=== PATIENT | female | born 1935 | race Caucasian/White ===

== ENCOUNTER 2017-02-22 17:30 | Emergency (ER) | payer OTHER, MEDICARE ==
--- NOTE | 2017-02-22 19:28 | PDOC ---
History of Present Illness - General History Source: Patient Exam Limitations: No Limitations - History of Present Illness Initial Comments: 02/22/17 22:04 81 y/o F with a PMHx of COPD, gastric ulcers presents to the ED s/p fall today. Patient was in her garden pulling weeds when she lost her balance and fell onto a wooden border. Patient reports associated left sided rib pain, left shoulder pain, back pain, neck pain, left hip pain and bilateral knee pain. She also has a skin abrasion on her left knee. Per family member, the patient coughed a lot after she fell and she now experiences pain on inspiration. She denies LOC, hitting her head, dizziness. She denies SOB. <Elida Gutierrez - Last Filed: 02/22/17 22:16> <Leatha Pardo - Last Filed: 02/24/17 22:14> - General Chief Complaint: Injury Stated Complaint: FELL, LEFT RIB PAIN Time Seen by Provider: 02/22/17 19:19 Past History <Elida Gutierrez - Last Filed: 02/22/17 22:16> <Leatha Pardo - Last Filed: 02/24/17 22:14> - Past Medical History Allergies/Adverse Reactions: Allergies Allergy/AdvReac Type Severity Reaction Status Date / Time No Known Allergies Allergy Unverified 06/09/12 11:48 Home Medications: Ambulatory Orders Albuterol Sulfate [Albuterol Sulfate Hfa] 8.5 gm IH ASDIR PRN 07/10/12 Bifidobacterium Infantis [Align] 4 mg PO DAILY capsule 07/10/12 Calcium 600 mg PO BID 07/10/12 Polyethylene Glycol 3350 [Miralax] 17 gm PO HS PRN 07/10/12 Acetaminophen with Codeine [Tylenol with Codeine #3 Tablet] 1 each PO TID PRN # 12 tablet MDD 3 tabs 02/22/17 Review of Systems - Review of Systems Respiratory: No: Shortness of Breath Musculoskeletal: Yes: Back Pain, Neck Pain, Other (left sided rib pain, left hip pain, left shoulder pain, bilateral knee pain) Integumentary: Yes: Other (left knee abrasion) Neurological: No: Headache, Dizziness, Other (LOC) All Other Systems: Reviewed and Negative <Elida Gutierrez - Last Filed: 02/22/17 22:16> *Physical Exam - Physical Exam Comments: 02/22/17 22:07 General: Patient is alert and in no acute distress. Speech is clear and appropriate. Head: Atraumatic and nontender. HEENT: Pupils are equal round and reactive to light, extraocular movements are intact. The tympanic membranes are clear, no hemotympanum. No facial deformity/tenderness, no septal hematoma. The oropharynx is clear. Neck: The trachea is midline, there is no stridor. There is no midline cervical spine tenderness, full range of motion of neck. Chest: Tenderness of the left ribs 4-8 at anterior axillary line. No crepitus no step offs of the chest wall. No ecchymosis or abrasions. Heart: S1-S2, regular rate and rhythm. No murmurs. Lungs: Clear to auscultation bilaterally. Symmetric chest rise. Abdomen: Soft/nontender/nondistended. Bowel sounds are normal. There is no abdominal or flank ecchymosis. Back/Pelvis: There is no midline spinal tenderness or step-off. Pelvis is stable and nontender. Extremities: Tenderness posteriorly of the left shoulder with reproduction of the pain with abduction of her upper arm. No deformity, edema or ecchymosis of the left shoulder. Tenderness of the knee anteriorly with 2 x 1 cm abrasions of the anterior surface of the knee. No deformity or ecchymosis. Minimal edema of the anterior aspect. No tenderness of the anterior portion of either hip joint. Neuro: Alert and oriented x3. Cranial nerves II through XII are intact. 5 out of 5 motor strength x4 extremities. [id number] is intact. No pronator drift. Gait is stable. Skin: No abrasions/hematomas/lacerations. Psych: Affect is appropriate. <Elida Gutierrez A - Last Filed: 02/22/17 22:16> Progress Note - Progress Note Progress Note: Documentation has been prepared under my direction and personally reviewed by me in its entirety. I attest that this documented accurately reflects all work, treatment, procedures and medical decision making performed by me. <Leatha Pardo J - Last Filed: 02/24/17 22:14> Medical Decision Making - Medical Decision Making As noted above, this 81-year-old woman presents with a history of of mechanical fall when she lost her balance while weeding in her garden. Patient fell against a wooden partition in the ground striking left upper anterior chest. There was no loss of consciousness/neck injury. Patient has significant amount of pain with deep breathing and palpation of her chest wall, left side; she also has left shoulder and left knee pain. X-rays of the left ribs/left shoulder/left knee all negative for fracture dislocation Patient discharged in the company of her family. The patient states that she uses Tylenol with codeine No. 3 as needed for severe pain : Otherwise she uses plain Tylenol. Prescription for Tylenol with codeine No. 3(#12) transmitted to patient's pharmacy. Patient will follow-up with her PMD, Dr. Hadley within the next 3-5 days. If she has severe pain, shortness of breath, cough, fever, she will return to the emergency room <Leatha Pardo - Last Filed: 02/24/17 22:14> *DC/Admit/Observation/Transfer - Attestations Scribe Attestion: 02/22/17 22:07 Documentation prepared by Elida Gutierrez, acting as emergency medical service coordinator for Leatha Pardo MD. <Elida Gutierrez - Last Filed: 02/22/17 22:16> <Leatha Pardo - Last Filed: 02/24/17 22:14> Diagnosis at time of Disposition: Contusion of rib on left side Qualifiers: Encounter type: initial encounter Qualified Code(s): S20.212A - Contusion of left front wall of thorax, initial encounter Contusion of left shoulder Qualifiers: Encounter type: initial encounter Qualified Code(s): S40.012A - Contusion of left shoulder, initial encounter Contusion of left knee Qualifiers: Encounter type: initial encounter Qualified Code(s): S80.02XA - Contusion of left knee, initial encounter - Discharge Dispostion Disposition: HOME Condition at time of disposition: Stable - Prescriptions Prescriptions: Acetaminophen with Codeine [Tylenol with Codeine #3 Tablet] 1 each PO TID PRN # 12 tablet MDD 3 tabs PRN Reason: Severe Pain - Referrals Referrals: Kevon Hadley MD [Primary Care Provider] - 1 week - Patient Instructions Printed Discharge Instructions: DI for Rib Contusion Additional Instructions: Avoid strenuous activity for the next several days Local warmth to areas of pain Tylenol as needed for mild to moderate pain Tylenol with codeine No. 3 as needed for severe pain Continue MiraLAX Follow-up with Dr. Hadley within the next 5-7 days Return to ER if you have fever/shortness of breath/cough
[2017-02-22 22:41] VITALS: BP 139/76; PULSE 82; TEMP 98.5; BMI 28.9
[2017-02-22] MEDS ORDERED: ACETAMINOPHEN WITH CODEINE 300MG/30MG TABLET PO ONE (22:41)
[2017-02-22] MEDS ORDERED: ACETAMINOPHEN WITH CODEINE 300MG/30MG TABLET ONE (22:47)
== END 2017-02-22 22:53 | disposition home or self-care (01) ==
LOC: FER 17:30
DX: S20.212A Contusion of left front wall of thorax, initial encounter (principal); S40.012A Contusion of left shoulder, initial encounter; S80.02XA Contusion of left knee, initial encounter; W18.39XA Other fall on same level, initial encounter; Y93.H2 Activity, gardening and landscaping; Y92.096 Garden or yard of other non-institutional residence as the place of occurrence of the external cause; J44.9 Chronic obstructive pulmonary disease, unspecified
CPT/HCPCS: 71101-TC; 73030-TC-LT; 73560-TC-LT; 99281-25

== ENCOUNTER 2020-05-17 16:18 | Emergency (ER) | payer OTHER, MEDICARE | END 2020-05-17 16:29 | disposition home or self-care (01) | LOC: JVIRT 16:18 | DX: Z03.818 Encounter for observation for suspected exposure to other biological agents ruled out (principal) | CPT/HCPCS: C9803; Q3014-GT; U0003 ==

== ENCOUNTER 2020-05-23 17:37 | Emergency (ER) | payer OTHER, MEDICARE | END 2020-05-23 17:48 | disposition home or self-care (01) | LOC: JVIRT 17:37 | DX: Z03.818 Encounter for observation for suspected exposure to other biological agents ruled out (principal) | CPT/HCPCS: C9803; Q3014-GT; U0003 ==

== ENCOUNTER 2020-05-29 10:00 | Emergency (ER) | payer OTHER, MEDICARE | END 2020-05-29 11:07 | disposition home or self-care (01) | LOC: JVIRT 10:00 | DX: Z11.59 Encounter for screening for other viral diseases (principal) | CPT/HCPCS: C9803; Q3014-GT; U0003 ==

== ENCOUNTER 2020-10-31 15:31 | Emergency (ER) | payer OTHER, MEDICARE ==
[2020-11-01 12:07] LABS: SARS-CoV-2 NAA Not Detected (Not Detected)
== END 2020-10-31 16:30 | disposition home or self-care (01) ==
LOC: JVIRT 15:31
DX: Z20.822 Contact with and (suspected) exposure to COVID-19 (principal)
CPT/HCPCS: C9803; G2251-GT; U0003; U0005

== ENCOUNTER 2021-02-04 22:20 | Emergency (ER) | payer OTHER, MEDICARE ==
[2021-02-04] MEDS ORDERED: ACETAMINOPHEN 500 MG TABLET (FP) PO ONE (22:29)
[2021-02-04 22:31] VITALS: BP 145/80; PULSE 80; TEMP 98.1; BMI 29.3
[2021-02-04] MEDS ORDERED: ACETAMINOPHEN 500 MG TABLET (FP) ONE (22:34)
== END 2021-02-05 00:28 | disposition home or self-care (01) ==
LOC: FER 22:20
DX: S22.32XA Fracture of one rib, left side, initial encounter for closed fracture (principal); S63.501A Unspecified sprain of right wrist, initial encounter; M79.645 Pain in left finger(s); W10.8XXA Fall (on) (from) other stairs and steps, initial encounter; Y93.01 Activity, walking, marching and hiking
CPT/HCPCS: 70450-TC; 71046-TC-FY; 71101-TC-LT-FY; 73110-TC-RT-FY; 73130-TC-RT-FY; 73140-TC-LT-FY; 99285-25

== ENCOUNTER 2021-11-30 04:22 | Day surgery (SDC) | payer OTHER, MEDICARE ==
[2021-11-24 16:58] VITALS: BMI 29.9
[2021-11-30] MEDS ORDERED: FENTANYL CITRATE/PF 50 MCG/ML VIAL ONE ×2 (14:16→14:37)
[2021-11-30] MEDS ORDERED: MIDAZOLAM HCL 2 MG/2 ML SINGLE DOSE VIAL ONE (14:16)
[2021-11-30] MEDS ORDERED: PROPOFOL 20 ML ONE (14:16)
[2021-11-30] MEDS ORDERED: ceFAZolin SODIUM 1 GM VIAL IVPB ONE (14:30)
[2021-11-30] MEDS ORDERED: PROMETHAZINE HCL 25 MG/1 ML VIAL IVPUSH PRN (14:51)
[2021-11-30] MEDS ORDERED: ONDANSETRON 4 MG/2 ML VIAL IVPUSH PRN (14:51)
[2021-11-30] MEDS ORDERED: oxyCODONE HCL 5 MG TABLET PO PRN (14:51)
[2021-11-30] MEDS ORDERED: ACETAMINOPHEN INJECTION 100 ML IVPB ONE (15:37)
[2021-11-30] MEDS ORDERED: ACETAMINOPHEN 1000 MG/100 ML BAG IVPB ONE (15:43)
[2021-11-30 17:29] VITALS: BP 117/74; PULSE 84; TEMP 97.9
== END 2021-11-30 17:55 | disposition home or self-care (01) ==
LOC: JASU-SURG 04:22
PROVIDERS: ATTEND Urology
PROC: 0TBB8ZX Excision of Bladder, Via Natural or Artificial Opening Endoscopic, Diagnostic (ICD-10-PCS; principal; 2021-11-30 14:00)
DX: R31.29 Other microscopic hematuria (principal); N30.20 Other chronic cystitis without hematuria
CPT/HCPCS: 88305-TC; 88342-TC; 94760

== ENCOUNTER 2022-03-15 09:55 | Inpatient (IN) | payer OTHER, MEDICARE ==
[2022-03-15] MEDS ORDERED: ACETAMINOPHEN 500 MG TABLET (FP) PO ONE (11:10)
[2022-03-15] MEDS ORDERED: ACETAMINOPHEN 325 MG TABLET (FP) ONE (11:23)
[2022-03-15 11:53] LABS: HEMATOCRIT 36.6 % (32.4-45.2); HEMOGLOBIN 12.9 G/dL (10.7-15.3); MCH 31.3 pg (25.7-33.7); MCHC 35.2 g/dl (32.0-36.0); MEAN CELL VOLUME 88.8 fl (80-96); MEAN PLT VOLUME 7.7 fl (7.5-11.1); PLATELET COUNT 226.9 10^3/uL (134-434); RBC 4.12 10^6/uL (3.60-5.2); RDW 14.6 % (11.6-15.6); WHITE BLOOD COUNT 6.3 10^3/uL (4.0-10.8)
[2022-03-15 12:02] LABS: ALBUMIN 3.9 g/dl (3.4-5.0); ALK PHOS 44 U/L (45-117); ANION GAP 9 MMOL/L (8-16); BILIRUBIN,TOTAL 0.5 mg/dl (0.2-1); CHLORIDE 98 mmol/L (98-107); CO2 25 mmol/L (21-32); CREATININE 0.7 mg/dl (0.55-1.3); GLUCOSE,RANDOM 103 mg/dl (74-106); SGOT/AST 31 U/L (15-37); SGPT/ALT 27 U/L (13-61); SODIUM 132 mmol/L (136-145); TOT PROT 6.6 g/dl (6.4-8.2)
[2022-03-15 12:51] LABS: CALCIUM 9.4 mg/dl (8.5-10)
[2022-03-15 12:52] LABS: PLATELET ESTIMATE ADEQUATE
[2022-03-15 13:08] LABS: ERYTHROCYTE SEDIMENTATION RATE 18 mm/hr (0-30)
[2022-03-15 18:17] VITALS: BMI 29.7
[2022-03-16 08:12] LABS: ALBUMIN 3.9 g/dl (3.4-5.0); BILIRUBIN,TOTAL 0.6 mg/dl (0.2-1); CALCIUM 8.9 mg/dl (8.5-10); CREATININE 0.7 mg/dl (0.55-1.3); TOT PROT 6.7 g/dl (6.4-8.2)
[2022-03-16 09:39] LABS: BASO % 0.5 % (0-2.0); EOS % 2.1 % (0-4.5); HEMATOCRIT 38.5 % (32.4-45.2); HEMOGLOBIN 13.1 GM/dL (10.7-15.3); LYMPH % 34.4 % (8-40); MCH 30.5 pg (25.7-33.7); MCHC 34.2 g/dl (32.0-36.0); MEAN CELL VOLUME 89.3 fl (80-96); MEAN PLT VOLUME 7.5 fl (7.5-11.1); MONO % 9.2 % (3.8-10.2); NEUT % 53.8 % (42.8-82.8); PLATELET COUNT 230 10^3/uL (134-434); RBC 4.31 M/mm3 (3.60-5.2); RDW 14.1 % (11.6-15.6); WHITE BLOOD COUNT 4.9 K/mm3 (4.0-10.0)
[2022-03-16 13:44] VITALS: BP 115/63; PULSE 84; RESP 16; TEMP 98.7
== END 2022-03-16 13:48 | DRG 566 ==
LOC: FER 09:55 → FM/S 13:06 → OBSVTOIN 15:25 → FM/S 17:16
DX: M25.462 Effusion, left knee (principal); M25.562 Pain in left knee; I10 Essential (primary) hypertension; J44.9 Chronic obstructive pulmonary disease, unspecified; E78.5 Hyperlipidemia, unspecified; N31.9 Neuromuscular dysfunction of bladder, unspecified; E66.9 Obesity, unspecified; Z68.29 Body mass index [BMI] 29.0-29.9, adult; M17.12 Unilateral primary osteoarthritis, left knee; R26.81 Unsteadiness on feet; K58.1 Irritable bowel syndrome with constipation; H90.5 Unspecified sensorineural hearing loss
CPT/HCPCS: 36415; 73562-TC-LT-FY; 73562-TC-RT-FY; 80053; 84550; 85025; 85651; 86140; 97116-GP; 97162-GP; 99285-25; C9803-CS; G0378; U0003; U0005

== ENCOUNTER 2022-12-19 06:17 | Inpatient (IN) | payer OTHER, MEDICARE ==
[2022-12-18 09:05] VITALS: BMI 29.9
[2022-12-19] MEDS ORDERED: TRANEXAMIC ACID 1000 MG/10 ML VIAL IVPUSH ONE (06:38)
[2022-12-19] MEDS ORDERED: CEFAZOLIN 2 GM in DEXTROSE 5%-WATER - 50 ML IVPB ONE (06:38)
[2022-12-19] MEDS ORDERED: DEXAMETHASONE SOD PHOSPHATE 4 MG/1 ML VIAL ONE (07:18)
[2022-12-19] MEDS ORDERED: ceFAZolin SODIUM 1 GM VIAL ONE (07:18)
[2022-12-19] MEDS ORDERED: ONDANSETRON 4 MG/2 ML VIAL ONE (07:18)
[2022-12-19] MEDS ORDERED: PROPOFOL 40 ML ONE (07:18)
[2022-12-19] MEDS ORDERED: TRANEXAMIC ACID 1000 MG/10 ML VIAL ONE ×2 (07:18→08:46)
[2022-12-19] MEDS ORDERED: BUPIVACAINE LIPOSOME/PF (EXPAREL) 266 MG/20 ML VIAL ONE (07:29)
[2022-12-19] MEDS ORDERED: BUPIVACAINE HCL/PF 0.5% (5MG/ML) 10 ML VIAL ONE ×2 (07:30→07:39)
[2022-12-19] MEDS ORDERED: SODIUM CHLORIDE 0.9% P/F 10 ML VIAL IJ ONE (07:30)
[2022-12-19] MEDS ORDERED: MIDAZOLAM HCL 2 MG/2 ML SINGLE DOSE VIAL ONE (07:30)
[2022-12-19] MEDS ORDERED: LIDOCAINE HCL 1%, 10 MG/ML (20ML VIAL) ONE (08:08)
[2022-12-19] MEDS ORDERED: LIDOCAINE HCL 2% (20ML MULTI-DOSE VIAL) ONE (08:08)
[2022-12-19] MEDS ORDERED: KETOROLAC TROMETHAMINE 30 MG/1 ML VIAL ONE (08:47)
[2022-12-19] MEDS ORDERED: MAG HYDROX/AL HYDROX/SIMETH 30 ML UNIT-DOSE CUP PO PRN (09:49)
[2022-12-19] MEDS ORDERED: MAGNESIUM HYDROX 2400MG/30ML ORAL SUSPENSION 30 ML CUP PO PRN (09:49)
[2022-12-19] MEDS ORDERED: ONDANSETRON 4 MG/2 ML VIAL IVPUSH PRN (09:49)
[2022-12-19] MEDS ORDERED: traMADol HCL 50 MG TABLET PO PRN (09:51)
[2022-12-19] MEDS ORDERED: CALCIUM (OYSTER SHELL) 500 MG TABLET (FP) PO SCH (10:00)
[2022-12-19] MEDS ORDERED: oxyCODONE HCL 5 MG TABLET PO PRN (10:04)
[2022-12-19] MEDS ORDERED: ACETAMINOPHEN 325 MG TABLET (FP) PO PRN (10:04)
[2022-12-19] MEDS: ACETAMINOPHEN 1000 MG/100 ML BAG IVPB ONE ×2 (10:10→18:40)
[2022-12-19] MEDS: DICYCLOMINE HCL 10 MG CAPSULE PO SCH ×2 (13:34→21:25)
[2022-12-19] MEDS: LACTATED RINGERS SOLUTION 1,000 ML IV SCH (17:17)
[2022-12-19] MEDS: CEFAZOLIN SODIUM 2 GM in DEXTROSE 5%-WATER 100 ML IVPB SCH (17:17)
[2022-12-19] MEDS: oxyCODONE HCL 5 MG TABLET PO PRN ×2 (18:39→23:43)
[2022-12-19] MEDS: ACETAMINOPHEN 1000 MG/100 ML BAG IVPB SCH (18:39)
[2022-12-19] MEDS: SENNOSIDES/DOCUSATE COMBO (SENNA PLUS) TABLET (UD) PO SCH ×2 (18:41→21:24)
[2022-12-19] MEDS: ESCITALOPRAM OXALATE 10 MG TABLET PO SCH (18:41)
[2022-12-19] MEDS: MULTIVITAMINS (DAILY MVI) TABLET (FP) PO SCH (18:41)
[2022-12-19] MEDS: FAMOTIDINE 20 MG TABLET PO SCH ×2 (18:41→21:25)
[2022-12-19] MEDS: CELECOXIB 100 MG CAPSULE PO SCH ×2 (18:41→21:25)
[2022-12-19] MEDS: PANTOPRAZOLE 40 MG TABLET PO SCH (18:41)
[2022-12-19] MEDS: LACTOBACILLUS ACIDOPHILUS 1 TABLET PO SCH (18:42)
[2022-12-19] MEDS: SODIUM CHLORIDE 1,000 ML IV SCH (18:42)
[2022-12-19] MEDS: ASPIRIN 81 MG CHEWABLE TABLETS PO SCH (21:48)
[2022-12-19] MEDS ORDERED: ATORVASTATIN CA 10 MG TABLET (FP) PO SCH (22:00)
[2022-12-20] MEDS: CEFAZOLIN SODIUM 2 GM in DEXTROSE 5%-WATER 100 ML IVPB SCH
[2022-12-20] MEDS: ACETAMINOPHEN 1000 MG/100 ML BAG IVPB SCH ×2 (02:00→11:43)
[2022-12-20] MEDS: oxyCODONE HCL 5 MG TABLET PO PRN ×2 (06:05→12:54)
[2022-12-20] MEDS: DICYCLOMINE HCL 10 MG CAPSULE PO SCH ×2 (06:05→16:21)
[2022-12-20] MEDS ORDERED: CALCIUM (OYSTER SHELL) 500 MG TABLET (FP) PO SCH ×2 (07:30→10:00)
[2022-12-20] MEDS ORDERED: TAMSULOSIN HCL 0.4 MG CAP PO SCH (08:30)
[2022-12-20 09:32] VITALS: RESP 18
[2022-12-20] MEDS ORDERED: TIOTROPIUM BROMIDE 2.5 MCG (SPIRIVA) RESPIMAT INHALER IH SCH (10:00)
[2022-12-20] MEDS ORDERED: FLUTICASONE PROP 0.05% 16 GM NASAL SPRAY NS SCH (10:00)
[2022-12-20] MEDS ORDERED: DEXAMETHASONE 4 MG TABLET (FP) PO ONE (10:00)
[2022-12-20] MEDS: SENNOSIDES/DOCUSATE COMBO (SENNA PLUS) TABLET (UD) PO SCH (10:08)
[2022-12-20] MEDS: ESCITALOPRAM OXALATE 10 MG TABLET PO SCH (10:08)
[2022-12-20] MEDS: FAMOTIDINE 20 MG TABLET PO SCH (10:08)
[2022-12-20] MEDS: MULTIVITAMINS (DAILY MVI) TABLET (FP) PO SCH (10:08)
[2022-12-20] MEDS: ASPIRIN 81 MG CHEWABLE TABLETS PO SCH (10:08)
[2022-12-20] MEDS: LACTOBACILLUS ACIDOPHILUS 1 TABLET PO SCH (10:08)
[2022-12-20] MEDS: CELECOXIB 100 MG CAPSULE PO SCH (10:08)
[2022-12-20] MEDS: PANTOPRAZOLE 40 MG TABLET PO SCH (10:08)
[2022-12-20 14:26] VITALS: BP 109/57; PULSE 100; TEMP 99.1
[2022-12-20] MEDS: SODIUM CHLORIDE 1,000 ML IV SCH (16:45)
[2022-12-20] MEDS: LACTATED RINGERS SOLUTION 1,000 ML IV SCH (16:45)
== END 2022-12-20 18:27 | disposition home or self-care (01) | DRG 470 ==
LOC: FM/S 06:17
PROVIDERS: ADMIT Orthopaedic Surgery; ATTEND Orthopaedic Surgery
PROC: 0SRD0J9 Replacement of Left Knee Joint with Synthetic Substitute, Cemented, Open Approach (ICD-10-PCS; principal; 2022-12-19 08:19)
DX: M17.12 Unilateral primary osteoarthritis, left knee (principal)
CPT/HCPCS: 73560-TC-LT-FY; 94760; 97010-GP; 97116-GP; 97162-GP; C1776; C1889

== ENCOUNTER 2024-06-30 14:44 | Emergency (ER) | payer OTHER, MEDICARE ==
[2024-06-30 15:27] VITALS: BP 120/103; PULSE 93; RESP 20; TEMP 98.4; BMI 29.1
== END 2024-06-30 18:25 | disposition left against medical advice (07) ==
LOC: FER 14:44
DX: R05.9 Cough, unspecified (principal); Z20.822 Contact with and (suspected) exposure to COVID-19
CPT/HCPCS: 0241U-QW; 71046-TC-FY; 99284-25